=== PATIENT | male | born 1980 | race Caucasian/White ===

== ENCOUNTER 2019-09-18 17:00 | Outpatient (RCR) | payer SELFPAY ==
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
--- NOTE | 2019-09-18 17:22 | HP.PTDCSUM ---
HP - PT D/C Summary It has been my pleasure to treat ROHIT MUÑOZ under orders from YOLA BEASLEY, for the diagnosis of R shoulder pain for a total of 10 visit(s). Discharge Date: Please see the following information for a summary of their discharge status. - Subjective Subjective: I have been achy the past couple days - Pain R shoulder Pain Intensity (Out of 10): 2 - Overall Improvement % Improvement: 80 - Objective Objective/Function: R shoulder pain is 2/10. R shoulder ROM: Flex= 150, abd= 140. R shoulder MMT: 5/5 throughout. I with HEP. Rx goals achieved - Goals Goal 1:: Decrease R shoulder pain x 50% to aid with sleep Goal Progress: Goal Met Goal 2:: Increase R shoulder strength x 1 grade to aid with IADL's Goal Progress: Goal Met Goal 3:: Increase R shoulder abd and flex ROM x 20 degrees to aid with overhead activity Goal Progress: Goal Met Goal 4:: I with HEP Goal Progress: Goal Met - Plan Plan: Discharge - D/C Information If there are questions or concerns regarding this patient's physical therapy, please feel free to call me at [phone]. Thank you for the referral of this patient. Sincerely, Dwayne Genao, PT, ATC
== END 2019-09-18 19:00 | disposition home or self-care (01) ==
LOC: PT 17:00
PROVIDERS: Family Provider Family Medicine; PCP Family Medicine
DX: M75.101 Unspecified rotator cuff tear or rupture of right shoulder, not specified as traumatic (principal)
CPT/HCPCS: 97110; 97161; 97530

== ENCOUNTER 2020-06-07 17:12 | Emergency (ER) | payer OTHER, SELFPAY ==
[2020-06-07 17:13] VITALS: BP 136/89; PULSE 99; RESP 16; TEMP 36.4; O2SAT 97; BMI 27.1
--- NOTE | 2020-06-07 17:21 | NURSING ---
NO OLD EKGS
[2020-06-07 17:32] VITALS: BP 127/97; PULSE 80; RESP 12; O2SAT 97
--- NOTE | 2020-06-07 17:50 | EKG12_ITS ---
Test Reason : CP Blood Pressure : / mmHG Vent. Rate : 084 BPM Atrial Rate : 084 BPM P-R Int : 172 ms QRS Dur : 126 ms QT Int : 404 ms P-R-T Axes : 039 033 023 degrees QTc Int : 477 ms Normal sinus rhythm Non-specific intra-ventricular conduction block Abnormal ECG Confirmed by LEXIE MIRANDA, HANNAH ([id number]), acquisitions editor EDNA YARBROUGH ([id number]) on 06/11/2020 8:42:38 AM Referred By: KAYLI Confirmed By:HANNAH OWEN MD
[2020-06-07 18:15] VITALS: BP 129/96; PULSE 73; RESP 15; O2SAT 97
--- NOTE | 2020-06-07 18:18 | RAD_ITS ---
STUDY: X-RAY CHEST REASON FOR EXAM: Male, 39 years old. PT PRESENTS WITH CHEST PAIN, TENDER TO TOUCH. -- HX OF HTN. TECHNIQUE: PA and lateral views of the chest. COMPARISON: None. FINDINGS: The lungs are clear and expanded. There is no demonstrated pleural abnormality. Normal size heart. Normal mediastinum and demar. Normal visualized pulmonary arteries. Normal visualized aortic arch and descending thoracic aorta. Normal visualized thoracic spine. Normal visualized ribs, clavicles, and shoulders. There is no demonstrated abnormality of the visualized soft tissue structures of the upper abdomen. RAD/Chest PA and Lateral IMPRESSION: Normal x-ray examination of the chest. Electronically Signed: Alessandro Galvez MD at 18:49 EDT , Service support ,
[2020-06-07 18:28] LABS: Absolute Lymphocyte Count 1.37 X10^3/uL (0.83-4.51); Absolute Neutrophil Count 3.4 X10^3/uL (2.0-7.7); Basophil# 0.01 X10^3/uL; Basophil% 0.2 % (0-1); Eosinophil# 0.07 X10^3/uL; Eosinophils% 1.3 % (0-5); Hematocrit 37.9 % (40-54); Hemoglobin 12.9 g/dL (13.0-16.5); Lymphocyte # 1.37 X10^3/ul (4.0); Lymphocyte % 25.5 % (19-41); Mean Corpuscular Hgb 31.4 pg (27.0-32.0); Mean Corpuscular Volume 92.2 fL (80-94); Mean Platelet Vol. 9.7 fl (6.2-12.0); Monocyte# 0.48 X10^3/uL; Monocyte% 8.9 % (0-10); NRBC Flagged by Analyzer 0 % (0-5); Neutrophil # 3.43 X10^3/uL (2.7-7.7); Neutrophil % 63.9 % (47-70); Platelet Count 205 K/mm3 (150-450); RBC Distribution Width CV 13.1 % (11.6-14.6); RBC Distribution Width SD 44.8 fl (35.1-43.9); Red Blood Count 4.11 M/mm3 (4.6-6.2); White Blood Count 5.4 K/mm3 (4.4-11.0)
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
[2020-06-07 18:51] LABS: Anion Gap 2 (5-15); BUN 9 mg/dL (7-18); BUN/Creat Ratio 10.9 RATIO (10-20); Calcium,Total 8.4 mg/dL (8.5-10.1); Chloride 107 mmol/L (98-107); Creatinine, Serum 0.82 mg/dL (0.70-1.30); EST Glomerular Filtration Rate 111 mL/min (>60); Est Glom Filt Rate - Afr Amer 134 mL/min (>60); Estimated Creatinine Clearance 134.07 ml/min; Glucose 115 mg/dL (74-106); Potassium 3.4 mmol/L (3.5-5.1); Sodium Level 139 mmol/L (136-145); Thyroid Stim Hormone (TSH) 1.04 uIU/mL (0.358-3.74)
[2020-06-07 18:54] LABS: D-Dimer Quantitative (DVT/PE) < 0.27 FEU/ug/m (0.27-0.49)
[2020-06-07 19:14] VITALS: PULSE 69; RESP 11; O2SAT 97
--- NOTE | 2020-06-07 19:41 | CM.ED ---
Social Work Consult: Anxiety Informant: Dr. Santana Chief Complaint: I have been miserable. Marital/Social History: Single. Currently in dating relationship. Living Situation: Lives with significant other. Support/Resources: Significant other. Active with [facility], Dr. Baird. No active counseling services I was discharged. 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 Mental Health Treatment/History: Anxiety. Reports counseling has not helped in the past and is not interested in starting counseling back up again. No history of inpatient psychiatric placement. Risk to Self/Others: Denies suicidal thoughts/plans/intents or history of. Patient wants to live for significant other, two teenage children. Patient states to be more concerned about not wanting to . Assessment: Met with patient in room. Introduced self and social science professor role. Patient agreeable to speaking with this social science professor. Patient states to have support from significant other but to have a lot going on right now. Patient states it has been building over the past 3 months. Patient states to be relived that patient is not dying from a heart attack. Patient states I can check that off the list. Patient states to be aware of coping skills and to use those. Patient aware of crisis hotline if needed and provided with community resources. Patient states to be frustrated that patient has had difficulty managing anxiety lately. This social science professor providing active listening. This social science professor utilizing the strengths perspective to assist patient in reframing current situation and patient strengths. Patient thanking this social science professor for time/conversation. This social science professor encouraging patient to give self natalie when working through challenges. This social science professor providing patient with information on Behavioral Health program. Patient not wanting to make referral for [facility] as patient does not have insurance and is not sure about the time commitment. This social science professor providing patient with options for obtaining health insurance. Patient voicing no further needs. PLAN: Discharge to home. Updated Dr. Santana on assessment. Mayela Carrington MSW, GRETCHEN
[2020-06-07 19:52] VITALS: BP 128/70
== END 2020-06-07 19:52 | disposition home or self-care (01) ==
PROVIDERS: Emergency Provider Emergency Medicine; PCP Family Medicine
DX: R07.89 Other chest pain (principal); R00.2 Palpitations; F41.9 Anxiety disorder, unspecified; Z87.891 Personal history of nicotine dependence
CPT/HCPCS: 71046; 80048; 83735; 84443; 84484; 85025; 85379; 93005; 99284; A4216

== ENCOUNTER → 2020-10-28 08:16 | Outpatient (CLI) | payer SELFPAY ==
--- NOTE | 2020-10-28 08:19 | RAD_ITS ---
STUDY: X-RAY - ESOPHAGUS (BARIUM SWALLOW) WITH FLUOROSCOPY REASON FOR EXAM: Male, 40 years old. Dysphagia increasing x 1 month, mostly solid food -- started April or May 2020 TECHNIQUE: 17 view(s) of the esophagus were obtained following swallowing of barium. FLUOROSCOPY TIME (if supplied): (0:23) minutes/seconds COMPARISON: None. FINDINGS: There is no demonstrated esophageal foreign body. There is no demonstrated stricture or mucosal abnormality. Normal gastroesophageal junction, without a demonstrated hiatal hernia. The patient ingested a 12 mm tablet of barium without any difficulty. Normal visualized aortic arch and descending thoracic aorta. Normal visualized pulmonary parenchyma. Normal visualized osseous structures of the thorax. RAD/Esophagus Dual Contrast IMPRESSION: Normal plain film x-ray examination (barium swallow) of the esophagus. Electronically Signed: Phil Mao, at 10:30 EST , Service support ,
== END ==
PROVIDERS: PCP Student in an Organized Health Care Education/Training Program; Referring Provider Otolaryngology; Visit Provider Otolaryngology
DX: R13.10 Dysphagia, unspecified (principal)
CPT/HCPCS: 74221

== ENCOUNTER → 2021-05-06 09:31 | Outpatient (CLI) | payer BC, SELFPAY ==
--- NOTE | 2021-05-06 09:34 | US_ITS ---
STUDY: SUPERFICIAL ULTRASOUND - RIGHT GROIN LYMPHADENOPATHY REASON FOR EXAM: Male, 40 years old. Localized enlarged lymph nodes TECHNIQUE: A superficial ultrasound was performed with real-time and static watson-scale imaging. COMPARISON: None. FINDINGS: Several lymph nodes are identified at the area of clinical concern within the right inguinal chain. Largest lymph nodes measure 26 x 12 x 6 mm, 21 x 12 x 6 mm and 22 x 14 x 6 mm. Morphologically these lymph nodes are unremarkable with vascular pedicle and fatty hilum identified. No focal abscess identified. US/Ext Non Vasc Limited/Soft Tiss IMPRESSION: Right groin lymph nodes as above. Favor reactive etiology as clinically indicated. Electronically Signed: Otf Manning MD at 19:59 EDT Tel , Service support ,
== END ==
PROVIDERS: PCP Student in an Organized Health Care Education/Training Program; Referring Provider Student in an Organized Health Care Education/Training Program; Visit Provider Student in an Organized Health Care Education/Training Program
DX: R59.0 Localized enlarged lymph nodes (principal)
CPT/HCPCS: 76882

== ENCOUNTER 2021-05-12 00:32 | Emergency (ER) | payer BC, SELFPAY ==
[2021-05-12 00:33] VITALS: BP 147/90; PULSE 95; RESP 16; TEMP 36.4; O2SAT 96; BMI 24.8
[2021-05-12 00:35] VITALS: BP 147/90; PULSE 95; RESP 16; TEMP 36.4; O2SAT 96
--- NOTE | 2021-05-12 02:21 | RAD_ITS ---
STUDY: X-RAY CHEST REASON FOR EXAM: Male, 40 years old. Fever TECHNIQUE: Single AP portable view of the chest. COMPARISON: None. FINDINGS: The lungs are clear and expanded. There is no demonstrated pleural abnormality. Normal size heart. Normal mediastinum and demar. Normal visualized pulmonary arteries. Normal visualized aortic arch and descending thoracic aorta. Normal visualized thoracic spine. Normal visualized ribs, clavicles, and shoulders. There is no demonstrated abnormality of the visualized soft tissue structures of the upper abdomen. RAD/Chest 1 View (Portable) IMPRESSION: No acute cardiopulmonary disease. Electronically Signed: Perla Rios MD at 4:04 EDT , Service support ,
[2021-05-12 02:28] LABS: Absolute Lymphocyte Count 0.59 X10^3/uL (0.83-4.51); Absolute Neutrophil Count 6.9 X10^3/uL (2.0-7.7); Basophil# 0.01 X10^3/uL; Basophil% 0.1 % (0-1); Eosinophil# 0.01 X10^3/uL; Eosinophils% 0.1 % (0-5); Hematocrit 40.3 % (40-54); Hemoglobin 13.7 g/dL (13.0-16.5); Lymphocyte # 0.59 X10^3/ul (0.83-4.51); Lymphocyte % 7.6 % (19-41); Mean Corpuscular Hgb 31.2 pg (27.0-32.0); Mean Corpuscular Volume 91.8 fL (80-94); Mean Platelet Vol. 9.3 fl (6.2-12.0); Monocyte# 0.25 X10^3/uL; Monocyte% 3.2 % (0-10); NRBC Flagged by Analyzer 0 % (0-5); Neutrophil # 6.88 X10^3/uL (2.7-7.7); Neutrophil % 88.7 % (47-70); POSITIVE DIFFERENTIAL YES; Platelet Count 220 K/mm3 (150-450); RBC Distribution Width CV 13.1 % (11.6-14.6); Red Blood Count 4.39 M/mm3 (4.6-6.2); White Blood Count 7.8 K/mm3 (4.4-11.0)
[2021-05-12] MEDS: 0.9% Normal Saline 1,000 ML 1000 ML IV (02:28)
[2021-05-12 02:35] LABS: Differential Indicated SCAN CRITERIA MET
[2021-05-12 02:47] LABS: ALB/GLOB Ratio 1.4 RATIO (0.9-2.4); AST(SGOT) 19 U/L (15-37); Alanine Aminotransfer ALT/SGPT 21 U/L (16-61); Albumin, Serum 4.2 g/dL (3.2-5.0); Alkaline Phosphatase 62 U/L (45-117); Anion Gap 6 (5-15); BUN 13 mg/dL (7-18); BUN/Creat Ratio 14.6 RATIO (10-20); Calcium,Total 8.7 mg/dL (8.5-10.1); Chloride 102 mmol/L (98-107); Creatinine, Serum 0.89 mg/dL (0.70-1.30); EST Glomerular Filtration Rate 101 mL/min (>60); Est Glom Filt Rate - Afr Amer 122 mL/min (>60); Estimated Creatinine Clearance 125.93 ml/min; Globulin 3.1 g/dL (2.2-4.2); Glucose 126 mg/dL (74-106); Potassium 4.5 mmol/L (3.5-5.1); Protein, Total 7.3 g/dL (6.4-8.2); Sodium Level 137 mmol/L (136-145)
--- NOTE | 2021-05-12 03:25 | EX.ED.DYSGE1 ---
HPI History of Present Illness Chief Complaint: Edema Informant: patient Onset/Context/Timing Onset: Weeks (3) Context: Gradual Onset Timing: Continuous Quality: Soreness, sharp at times Location: Right inguinal area, right neck, left inguinal area Worsened by: Nothing Relieved by: Nothing Narrative Narrative: Patient presents with swollen lymph nodes that have been getting worse over the past 3 weeks. Patient states this started in his right groin area. Patient states it was a dull ache. Patient states it became sharp at times. Patient states that he has noticed some lymph nodes in the right side of his neck and left groin as well. Patient was started on Augmentin and prednisone. Patient is still taking these. Patient denies any fevers or chills. Patient does admit to some intermittent pain in the right side of his chest. Patient also admits to chronic neck and back pain. PFSH PFSH Home Medications alprazolam [Xanax Xr] 1 mg PO Q6H 06/01/15 [History Last Taken Unknown] buspirone 20 mg PO TID 06/01/15 [History Last Taken Unknown] amoxicillin-pot clavulanate 1 tab PO BID 05/12/21 [History Last Taken Unknown] risperidone 0.25 mg PO QHS 05/12/21 [History Last Taken Unknown] Allergy/AdvReac Type Severity Reaction Status Date / Time pertussis vaccine,adsorbed Allergy Unknown Verified 05/12/21 00:36 Social History Smoking Status: Former smoker ROS ROS ED Constitutional Constitutional ED: Denies chills or fever(s) Eyes Eyes: Denies blurry vision or change in vision ENT ENT ED: Denies rhinorrhea or sore throat Cardiovascular Cardiovascular: Reports chest pain; Denies palpitations Respiratory/Chest Respiratory/Chest: Denies cough or dyspnea Gastrointestinal Gastrointestinal: Denies nausea or vomiting Genitourinary Genitourinary ED: Denies dysuria or hematuria Musculoskeletal Musculoskeletal: Reports back pain and neck pain Integumentary Denies abscess or rash Neurologic Neurologic: Denies headache(s) or weakness Allergic/Immunologic Allergic/Immunologic ED: Denies mouth swelling or urticaria EXAM Physical Exam Const Vital Signs: 05/12/21 00:33 05/12/21 00:35 Temperature 97.5 F L 97.5 F L Temperature Source Temporal Temporal Pulse Rate 95 95 Respiratory Rate 16 16 Blood Pressure 147/90 H 147/90 H Blood Pressure Mean 109 109 Pulse Ox 96 96 Oxygen Delivery Method Room Air Room Air Positive well nourished and well developed General Appearance ED: well developed HEENT Reports moist mucous membranes Neck supple and no JVD Neck Narrative: There is some mild lymphadenopathy on the right. Resp normal respiratory effort and clear to auscultation bilaterally Cardio regular rate, regular rhythm and no murmurs GI normal to inspection, nondistended, normoactive bowel sounds and non-tender Palpation: soft Extremity normal to inspection Extremity Narrative: There is some bilateral inguinal lymphadenopathy noted. General Extremety ED: Negative for edema or tenderness General Extremity: Negative for edema Neuro oriented x3, CN's II-XII intact bilaterally and no sensory deficits noted Sensorium / Orientation: alert Motor Exam: strength 5/5 throughout Psych mental status grossly normal Skin no rashes or lesions noted MDM MDM MDM Narrative Medical decision making narrative: Portable 1 view chest x-ray was obtained. On my interpretation, lung summers are clear. There is normal cardiac silhouette. Bony thorax is normal. There is no acute process noted. Radiologist also interpreted the x-ray and agrees. CBC and comprehensive metabolic profile were obtained and were within normal limits. Patient was advised of his results. Patient was instructed to follow-up with his primary care physician in 3 to 5 days for further evaluation. Patient was instructed to continue his antibiotic and prednisone until they are gone. Patient understood and was agreeable with the plan. All questions were answered. Lab Data Attestation: I reviewed the patient's lab results. Labs: Laboratory Results - last 24 hr 05/12/21 05/12/21 02:20 02:20 WBC 7.8 RBC 4.39 L Hgb 13.7 Hct 40.3 MCV 91.8 MCH 31.2 MCHC 34.0 RDW Std Deviation 44.0 H RDW Coeff of Carlos 13.1 Plt Count 220 MPV 9.3 Immature Gran % (Auto) 0.300 Neut % (Auto) 88.7 H Lymph % (Auto) 7.6 L [place] % (Auto) 3.2 Eos % (Auto) 0.1 Baso % (Auto) 0.1 Absolute Neuts (auto) 6.9 Absolute Lymphs (auto) 0.59 L Nucleated RBC % 0 Sodium 137 Potassium 4.5 Chloride 102 Carbon Dioxide 29.0 Anion Gap 6 BUN 13 Creatinine 0.89 Estim Creat Clear Calc 125.93 Est GFR (MDRD) Af Amer 122 Est GFR (MDRD) Non-Af 101 BUN/Creatinine Ratio 14.6 Glucose 126 H Calcium 8.7 Total Bilirubin 0.50 AST 19 ALT 21 Alkaline Phosphatase 62 Total Protein 7.3 Albumin 4.2 Globulin 3.1 Albumin/Globulin Ratio 1.4 Radiography Chest X-Ray - ED: 1 View, Read by ED Physician, Read by Radiologist and Normal Diagnostic Testing: Radiology Impression Chest X-Ray 05/12/21 02:21 IMPRESSION: No acute cardiopulmonary disease. Electronically Signed: Perla Rios MD at 4:04 EDT , Service support , Discharge Plan Triage Chief Complaint: Edema ED Provider: Alli Lott Dx/Rx/DC Orders Clinical Impression: Lymphadenitis Instructions: Lymphadenopathy Prescriptions: No Action buspirone 5 MG tablet 20 mg PO TID RF: 0 alprazolam [Xanax XR] 1 MG tablet extended release 24 hr 1 mg PO Q6H RF: 0 risperidone 0.25 mg tablet 0.25 mg PO QHS RF: 0 amoxicillin-pot clavulanate 875-125 mg tablet 1 tab PO BID RF: 0 Primary Care Provider: Renny Swanson Referrals: Renny Swanson DO [Primary Care Provider] - 3-5 Days Disposition Disposition: Home, Self Care Discharge Date/Time: 05/12/21 04:26
[2021-05-12 04:25] VITALS: BP 142/60; PULSE 78; RESP 18; O2SAT 98
== END 2021-05-12 04:26 | disposition home or self-care (01) ==
PROVIDERS: Emergency Provider Emergency Medicine; PCP Student in an Organized Health Care Education/Training Program
DX: I88.9 Nonspecific lymphadenitis, unspecified (principal); Z87.891 Personal history of nicotine dependence; Z79.899 Other long term (current) drug therapy
CPT/HCPCS: 71045; 80053; 85025; 96360; 96361; 99282; J7030; A4216

== ENCOUNTER → 2021-06-19 14:57 | Outpatient (CLI) | payer BC, SELFPAY ==
--- NOTE | 2021-06-19 15:01 | CT_ITS ---
STUDY: CT ABDOMEN AND PELVIS WITH CONTRAST REASON FOR EXAM: Male, 40 years old. Adenopathy and night sweats. RADIATION DOSAGE (If Supplied By Facility): CTDIvol = ( 12.735 ) mGy, DLP = ( 611.87 ) mGycm TECHNIQUE: Transaxial images were obtained from the dome of the diaphragm to the symphysis pubis without oral contrast. IV 100mL Isovue-300 was administered. Sagittal and coronal images were reconstructed. Individualized dose optimization techniques were used for this CT. COMPARISON: None. FINDINGS: The visualized lung bases are unremarkable. The visualized portions of the heart are within normal limits. Normal liver. Normal gallbladder and extrahepatic biliary system. Normal spleen. Normal pancreas. Normal bilateral adrenal glands. Normal right kidney. Normal left kidney. Normal visualized stomach. Normal small intestine. Normal colon. The appendix is visualized and appears normal. Normal abdominal aorta. Normal inferior vena cava. Nonspecific subcentimeter left periaortic lymphadenopathy. Normal urinary bladder. Normal prostate. No pelvic lymphadenopathy. No free air or free fluid is seen within the peritoneal cavity. Umbilical hernia of omental fat. There are small lymph nodes in the right inguinal region. Normal osseous structures. CT/Abdomen/Pelvis WITH Contrast IMPRESSION: 1. Nonspecific subcentimeter left periaortic and right inguinal lymphadenopathy. No other evidence of lymphadenopathy. 2. Otherwise normal CT of the abdomen and pelvis. Electronically Signed: Doug Turner DO at 17:25 EDT Tel [phone], Service support ,
--- NOTE | 2021-06-19 15:02 | RAD_ITS ---
STUDY: X-RAY CHEST REASON FOR EXAM: Male, 40 years old. Lymphadenopathy. Night sweats. Fatigue. TECHNIQUE: PA and lateral views of the chest. COMPARISON: 05/12/2021. FINDINGS: The lungs are clear and expanded. There is no demonstrated pleural abnormality. Normal size heart. Normal mediastinum and demar. Normal visualized pulmonary arteries. Normal visualized aortic arch and descending thoracic aorta. Normal visualized thoracic spine. Normal visualized ribs, clavicles, and shoulders. There is no demonstrated abnormality of the visualized soft tissue structures of the upper abdomen. RAD/Chest PA and Lateral IMPRESSION: No acute cardiopulmonary disease or interval change. Electronically Signed: Doug Turner DO at 16:47 EDT Tel [phone], Service support ,
== END ==
PROVIDERS: PCP Student in an Organized Health Care Education/Training Program; Referring Provider Student in an Organized Health Care Education/Training Program; Visit Provider Student in an Organized Health Care Education/Training Program
DX: R59.1 Generalized enlarged lymph nodes (principal); R61 Generalized hyperhidrosis
CPT/HCPCS: 71046; 74177; Q9967

== ENCOUNTER → 2022-03-03 | Outpatient (CLI) | payer BC, SELFPAY ==
--- NOTE | 2022-03-03 | MASS_PTH ---
PATIENT: ROHIT MUÑOZ LOC: [facility] U#:[id number] AGE/SX: 41/M ROOM: RE03/03/[address]: Dr. Estevan Mendes MD : 1980 BED: DIS: 03/03/2022 SPEC #: [id number] RECD: 03/03/22 14:55 STATUS: BERRY RERaymond #: [id number] NATALI: 03/03/22 00:[address]: Estevan Mendes DEPT: SURGICAL PATHOLOGY RECD BY: Omar Sanford ENTERED: 03/04/22 09:17 SP TYPE: Mass OTHR DR: Dr. Renny Swanson, [facility] Tissues: NASAL POLYP Procedures: Surgery Specimen Level IV HEADER OPERATION: Excision left nasal floor mass PRE-OP DIAGNOSIS: Neoplasm of skin TISSUE SUBMITTED: Left intranasal neoplasm MICROSCOPIC DIAGNOSIS Left intranasal neoplasm, excision: Consistent with verrucous vulgaris. MIGUEL:lbira 03/05/2022 MICROSCOPIC DESCRIPTION Slides are reviewed. GROSS DESCRIPTION Received in fixative is one container labeled with the patient's name and designated left intranasal neoplasm. The specimen consists of a fragment of mendoza-light brown soft tissue measuring 0.3 x 0.3 x 0.1 cm. The specimen is totally submitted in one cassette. / SJ:rg 03/04/2022 TC:1 CPT: 61127
== END | disposition home or self-care (01) ==
LOC: LABSPEC 15:11
PROVIDERS: PCP Student in an Organized Health Care Education/Training Program; Referring Provider Otolaryngology; Visit Provider Otolaryngology
DX: D48.5 Neoplasm of uncertain behavior of skin (principal)
CPT/HCPCS: 88304; 88305

== ENCOUNTER 2025-01-21 15:24 | Emergency (ER) | payer BC, SELFPAY ==
[2025-01-21 15:25] VITALS: BP 160/97; PULSE 72; RESP 15; TEMP 36.7; O2SAT 100; BMI 27.7
--- NOTE | 2025-01-21 15:59 | EDS_ITS ---
HPI HPI - URI History of Present Illness Chief Complaint: Cold Sx Informant: patient Onset/Context/Timing Onset: Days and Weeks Context: Gradual Onset Timing: Continuous Maximum Severity: Mild Associated Symptoms Associated Symptoms: Positive for Nasal Congestion and Nonproductive cough; Negative for Nausea, Vomiting, Diarrhea, Shortness of Breath or Chest Pain Narrative Narrative: Healthy 44-year-old male. Urinary symptoms last several days to 1 to 2 weeks. He has also had some itching in his eyes. No redness. Nonproductive cough. Said he had flulike symptoms about 3 weeks ago which resolved. Denies any shortness of breath. Denies fever. Denies vomiting or diarrhea. Prior similar symptoms: Yes Recent Illness/Hospitalization: No ROS ROS ED ROS Narrative URI symptoms. Constitutional Constitutional ED: Denies chills or fever(s) Eyes Eyes: Denies blurry vision ENT ENT ED: Denies ear pain Cardiovascular Cardiovascular: Denies chest pain or palpitations Respiratory/Chest Respiratory/Chest: Reports cough; Denies dyspnea or dyspnea on exertion Gastrointestinal Gastrointestinal: Denies abdominal pain, diarrhea, nausea or vomiting Genitourinary Genitourinary ED: Denies dysuria or hematuria Musculoskeletal Musculoskeletal: Denies arthralgias Integumentary Denies abscess Neurologic Neurologic: Denies headache(s) Psychiatric Psychiatric: Denies anxiety Endocrine Endocrinology: Denies cold intolerance Hematologic/Lymphatic Hematologic/Lymphatic: Denies easy bleeding, easy bruising or lymphadenopathy Allergic/Immunologic Allergic/Immunologic ED: Denies mouth swelling, tongue swelling or urticaria PFSH PFSH no medical history Home Medications ?Medication ?Instructions ?Recorded ?Last Taken ?Type alprazolam 1 mg tablet,extended 1 mg PO Q6H 06/01/15 U nknown History release 24 hr (Xanax XR) buspirone 5 mg tablet 20 mg PO TID 06/01/15 Unknow n History amoxicillin 875 mg-potassium 1 tab PO BID 05/12/21 Unk nown History clavulanate 125 mg tablet risperidone 0.25 mg tablet 0.25 mg PO QHS 05/12/21 Unk nown History prazosin 1 mg capsule 2 mg PO QHS 01/21/25 Unknown History propranolol 20 mg tablet 20 mg PO 4X/DAY 01/21/25 Unk nown History risperidone 1 mg tablet 1 mg PO BID 03/16/25 Unknown History Allergy/AdvReac Type Severity Reaction Status Date / Time pertussis vaccine,adsorbed Allergy Unknown Verified 01/21/25 15:26 Social History Smoking Status: Former smoker EXAM Physical Exam Narrative Exam Narrative: 44-year-old male vital signs stable afebrile. Pulse ox 100% on room air no signs hypoxia. No distress. H EENT exam TMs normal bilaterally. Moist mucous membranes. Posterior pharynx normal. Mild redness to both eyes. No discharge or drainage. No foreign body or abrasion. Upper and lower lids are normal. Neck nontender no lymphadenopathy. Trachea midline. Lungs clear to auscultation bilaterally. No rales rhonchi or wheezing. Equal symmetrical. Heart regular rhythm no murmur. Chest wall and ribs nontender. Abdomen soft nontender. Moving all 4 extremities. Nontender no edema. Neurologically is awake and alert no focal motor deficits. Const Vital Signs: 01/21/25 15:25 Temperature 98.1 F Temperature Source Temporal Pulse Rate 72 Respiratory Rate 15 Blood Pressure 160/97 H Blood Pressure Mean 118 Pulse Ox 100 Oxygen Delivery Method Room Air Positive well nourished and well developed; Negative for obese, cachectic or contractures General Appearance ED: well developed and NAD; Negative for cachectic, contractures, cyanotic, diaphoretic or pallor Nutritional Appearance: Negative for cachectic or obese HEENT Reports moist mucous membranes normocephalic and atraumatic Throat: posterior oropharynx normal; Negative for tonsils abnormal or posterior oropharynx abnormal Eyes PERRL and EOMs intact bilaterally General Eye ED: Negative for pale conjunctiva or scleral icterus Neck no lymphadenopathy, supple, no meningeal signs and no JVD Resp normal respiratory effort and clear to auscultation bilaterally Effort and Inspection: Negative for retractions Auscultation: Negative for rales, rhonchi, wheezes or diminished lung sounds Cardio S1 normal heart sound, S2 normal heart sound and no murmurs Rate: regular rate Rhythm: regular rhythm GI non-tender, non-distended and no masses Palpation: soft; Negative for tender, guarding or mass Back/Spine no CVA tenderness and normal ROM Extremity normal to inspection and full ROM General Extremety ED: Negative for cyanosis or tenderness General Extremity: Negative for cyanosis Neuro oriented x3 and CN's II-XII intact bilaterally Sensorium / Orientation: alert, oriented to person, oriented to place and o riented to time; Negative for orientation impaired, lethargic, stuporous or other Motor Exam: strength 5/5 throughout Psych mental status grossly normal Skin General Skin Exam: Negative for jaundice or pallor Lesions: no lesions Rashes: no rashes MDM MDM MDM Narrative Medical decision making narrative: 44-year-old male with either just a viral URI symptoms or seasonal allergies. Exam is very benign. He does not need any imaging or labs. He states that Benadryl and Katharine helped his symptoms. Will continue that. He does not need any antibiotics at this time. He is comfortable being discharged home. Discharge Plan Triage Chief Complaint: Cold Sx ED Provider: Brennan Raya Dx/Rx/DC Orders Clinical Impression: Viral syndrome, Seasonal allergies Instructions: ED URI, Viral, No Abx (Adult) Prescriptions: No Action buspirone 5 MG tablet 20 mg PO TID alprazolam [Xanax XR] 1 MG tablet extended release 24 hr 1 mg PO Q6H risperidone 0.25 mg tablet 0.25 mg PO QHS Patient Comments: TAKE 1 TABLET BY MOUTH EVERY DAY AT BEDTIME amoxicillin-pot clavulanate 875-125 mg tablet 1 tab PO BID Patient Comments: TAKE 1 TABLET BY MOUTH EVERY 12 HOURS for TEN days prazosin 1 mg capsule 2 mg PO QHS propranolol 20 mg tablet 20 mg PO 4X/DAY risperidone 1 mg tablet 1 mg PO BID Primary Care Provider: Renny Swanson Referrals: Renny Swanson DO [Primary Care Provider] - As Needed Activity Restrictions/Additional Instructions: This is either just a viral syndrome which will get better in the next several days to a week. Or early seasonal allergies. Benadryl and Katharine as needed. Warm compresses if you get discharge from your eyes. Motrin and Tylenol for body aches. Follow-up with your doctor as needed. Print Language: Gabonese Disposition Disposition: Home, Self Care
== END 2025-01-21 16:08 | disposition home or self-care (01) ==
PROVIDERS: Emergency Provider Emergency Medicine; PCP Student in an Organized Health Care Education/Training Program; Visit Provider Emergency Medicine
DX: B34.9 Viral infection, unspecified (principal); J30.2 Other seasonal allergic rhinitis; Z87.891 Personal history of nicotine dependence
CPT/HCPCS: 99283